=== PATIENT | male | born 1970 | race African-American/Black ===

== ENCOUNTER 2020-02-01 15:08 | Emergency (ER) | payer OTHER, SELFPAY ==
[2020-02-01 15:14] VITALS: BP 114/61; PULSE 68; RESP 18; TEMP 37.4; O2SAT 100
--- NOTE | 2020-02-01 15:19 | ECG_ITS ---
Measurements Intervals [place] Rate: 52 P: 94 HI: 167 QRS: 72 QRSD: 94 T: 78 QT: 405 QTc: 377 Interpretive Statements SINUS BRADYCARDIA NONSPECIFIC ST ELEVATION IN ANT/INF LEADS- PROBABLY EARLY REPOLARIZATION BORDERLINE ECG Electronically Signed On 02-01-2020 15:37:09 CDT by Odell Clarke D.O.
[2020-02-01 15:49] LABS: Basophils Percent Auto 0.5 % (0.2-1.2); Eosinophils Percent Auto 0.5 % (0-4.4); Hematocrit 40.4 % (42.0-52.0); Hemoglobin 13.2 g/dL (14.0-18.0); Immature Granulocyte Absolute 0.04 K/mm3 (0.00-0.031); Lymphocytes Absolute Auto 1.42 K/mm3 (0.9-3.2); Lymphocytes Percent Auto 34.1 % (18.3-44.2); Mean Corpuscular HGB Conc 32.7 g/dl (32-36); Mean Corpuscular Hemoglobin 29.8 pg (26-34); Mean Corpuscular Volume 91.2 fl (80-100); Mean Platelet Volume 10.5 fl (7.4-10.4); Monocytes Absolute Auto 0.5 K/mm3 (0.1-0.6); Monocytes Percent Auto 11.5 % (2.6-8.5); Neutrophils Absolute Auto 2.2 K/mm3 (1.3-6.7); Neutrophils Percent Auto 52.4 % (45.5-73.1); Platelet Count Result 184 k/mm3 (150-375); Red Blood Count 4.43 M/mm3 (4.6-6.20); Red Cell Distribution Width 11.9 % (11.5-14.5); White Blood Count 4.2 K/mm3 (4.5-10.0)
[2020-02-01 16:03] LABS: Blood Urea Nitrogen 12 mg/dL (9-20); Carbon Dioxide 28 mmol/L (22-30); Chloride 105 mmol/L (98-107); Estimated CRCL calculation 77 ml/min; Estimated Glomerular Filt Rate 58; Glucose 96 mg/dL (75-110); Potassium 4.4 mmol/L (3.4-5.0); Sodium 139 mmol/L (137-145)
[2020-02-01 17:13] LABS: Basophils Percent Auto 0.5 % (0.2-1.2); Eosinophils Percent Auto 0.7 % (0-4.4); Hematocrit 39.2 % (42.0-52.0); Hemoglobin 12.7 g/dL (14.0-18.0); Immature Granulocyte Absolute 0.03 K/mm3 (0.00-0.031); Immature Granulocyte Percent A 0.7 % (0-0.5); Lymphocytes Absolute Auto 1.34 K/mm3 (0.9-3.2); Lymphocytes Percent Auto 30.2 % (18.3-44.2); Mean Corpuscular HGB Conc 32.4 g/dl (32-36); Mean Corpuscular Hemoglobin 29.5 pg (26-34); Mean Platelet Volume 10.3 fl (7.4-10.4); Monocytes Absolute Auto 0.5 K/mm3 (0.1-0.6); Monocytes Percent Auto 10.6 % (2.6-8.5); Neutrophils Absolute Auto 2.5 K/mm3 (1.3-6.7); Neutrophils Percent Auto 57.3 % (45.5-73.1); Platelet Count Result 182 k/mm3 (150-375); Red Blood Count 4.31 M/mm3 (4.6-6.20); Red Cell Distribution Width 11.9 % (11.5-14.5); White Blood Count 4.4 K/mm3 (4.5-10.0)
--- NOTE | 2020-02-01 17:14 | PC.NURSE ---
Pt refuses IV and IV fluids. Informed Dr. Jacobo of this
[2020-02-01 17:21] LABS: INR 0.9; Prothrombin Time 12.2 Seconds (11.1-14.7)
[2020-02-01 17:22] LABS: Partial Thromboplastin Time 27.2 SECONDS (22.3-36.8)
[2020-02-01 17:25] LABS: Alanine Aminotransferase 23 U/L (4-50); Albumin Level 4.3 g/dL (3.5-5.1); Alkaline Phosphatase 48 U/L (38-126); Aspartate Amino Transferase 29 U/L (17-59); Bilirubin,Total 0.4 mg/dL (0.2-1.3); Blood Urea Nitrogen 12 mg/dL (9-20); Carbon Dioxide 29 mmol/L (22-30); Chloride 104 mmol/L (98-107); Estimated CRCL calculation 83 ml/min; Estimated Glomerular Filt Rate > 60; Glucose 97 mg/dL (75-110); Potassium 4.1 mmol/L (3.4-5.0); Sodium 141 mmol/L (137-145)
[2020-02-01 17:26] VITALS: BP 118/67; PULSE 47
[2020-02-01 17:28] VITALS: BP 118/72; PULSE 48
[2020-02-01 17:30] VITALS: BP 116/75; PULSE 65
[2020-02-01 17:34] LABS: Add Urine Microscopic? YES; Appearance Urine Clear (Clear); Bacteria Urine Trace /hpf; Bilirubin Urine Negative (Negative); Blood Urine Negative (Negative); Color Urine Yellow (Yellow); Glucose Urine UA Negative (Negative); Ketones Urine Negative (Negative); Leukocyte Esterase Ur Negative LEU/UL (Negative); Mucus Urine Few /lpf; Nitrate Urine Negative (Negative); Protein Urine Negative (Negative); Specific Grav Ur 1.026 (1.001-1.035); Urobilinogen Urine Negative mg/dL (<2.0); WBC Urine 0-3 /hpf
[2020-02-01 17:37] LABS: Troponin I < 0.012 ng/mL (0.000-0.034)
--- NOTE | 2020-02-01 17:43 | ED.GENADULT ---
HPI - General Adult General Chief complaint: Recheck/Abnormal Lab/Rx Stated complaint: sent by pcp, hx of suncopal episode Time Seen by Provider: 02/01/20 16:56 Source: patient and family Mode of arrival: ambulatory Limitations: no limitations History of Present Illness HPI narrative: 49-year-old with no major medical problems here with complaints of syncopal episode. Patient states that he was in silent protest which was going on yesterday. Patient states that he was standing in line with his facial mask on all of a sudden he felt short of breath and lightheaded and had a near syncopal episode however patient states that he did not pass out completely. This morning he did go see Dr. Croft for the first time and patient was later referred here to the ER for evaluation. Patient states that his blood pressure is always low also raises heart rate. He presently denies any chest pain, shortness of breath, headache or abdominal pain. Onset (ago): day(s) (1) Associated symptoms: denies other symptoms Review of Systems Review of Systems: All systems reviewed & are unremarkable except as noted in HPI and below Constitutional: Constitutional: Reports as per HPI Eyes: Eyes: Reports as per HPI ENT: Reports system reviewed and no additional complaints, except as documented Cardiovascular: Cardiovascular: Reports as per HPI Respiratory: Respiratory: Reports no additional respiratory complaints Gastrointestinal: Gastrointestinal: Reports no additional gastrointestinal complaints Musculoskeletal: Musculoskeletal: Reports no additional musculoskeletal complaints Neurologic: Reports system reviewed and no additional complaints, except as documented Psychiatric: Psychiatric: Reports no additional psychiatric complaints PMFSH Social History Social History Gender identity (if verbalized by the patient): Male Exam Const: General: no acute distress HENMT: Head: normal to inspection Eyes: Conjunctivae: conjunctivae normal Pupils: Equal, round and reactive pupils present Neck: Neck: normal visual inspection Chest: Chest palpation & inspection: normal inspection of the chest Resp: Effort & Inspection: normal respiratory effort Cardio: Rate: regular rate Rhythm: regular rhythm Skin: General skin exam: normal color Neuro: General: patient oriented x3 and moves all extremities Extrem: General: normal to inspection Psych: Mental Status: mental status grossly normal Course Course Emergency Course: Inform patient that when family about his lab work, EKG. Patient presently denies any complaints he states that he is back to his baseline. I advised him to follow-up with his primary doctor as needed. Vital Signs Vital signs: Vital Signs Temperature 37.4 C 02/01/20 15:14 Pulse Rate 68 02/01/20 15:14 Respiratory Rate 18 02/01/20 15:14 Blood Pressure 114/61 02/01/20 15:14 Pulse Oximetry 100 02/01/20 15:14 Temperature 37.4 C 02/01/20 15:14 Pulse Rate 65 02/01/20 17:30 Respiratory Rate 18 02/01/20 15:14 Blood Pressure 116/75 02/01/20 17:30 Pulse Oximetry 100 02/01/20 15:14 Medical Decision Making Vital Signs Vital Signs: Vital Signs Temperature 37.4 C 02/01/20 15:14 Pulse Rate 68 02/01/20 15:14 Respiratory Rate 18 02/01/20 15:14 Blood Pressure 114/61 02/01/20 15:14 Pulse Oximetry 100 02/01/20 15:14 Temperature 37.4 C 02/01/20 15:14 Pulse Rate 65 02/01/20 17:30 Respiratory Rate 18 02/01/20 15:14 Blood Pressure 116/75 02/01/20 17:30 Pulse Oximetry 100 02/01/20 15:14 Lab Data Result diagrams: 02/01/20 17:08 02/01/20 17:08 Labs: Lab Results 02/01/20 02/01/20 02/01/20 Range/Units 15:33 15:33 17:08 WBC 4.2 L 4.4 L (4.5-10.0) K/mm3 RBC 4.43 L 4.31 L (4.6-6.20) M/mm3 Hgb 13.2 L 12.7 L (14.0-18.0) g/dL Hct 40.4 L 39.2 L (42.0-52.0) % MCV 91.2 91.0 (80-100) fl MCH 29.8 29.5 (26-3
[2020-02-01 18:14] VITALS: BP 114/66; PULSE 54; RESP 18; O2SAT 100
== END 2020-02-01 18:14 | disposition home or self-care (01) ==
PROVIDERS: Emergency Medicine; Emergency Medicine Emergency Medical Services; Emergency Provider Family Medicine
DX: R55 Syncope and collapse (principal); R00.1 Bradycardia, unspecified; R94.31 Abnormal electrocardiogram [ECG] [EKG]
CPT/HCPCS: 36415; 80048; 80053; 81001; 84484; 85025; 85610; 85730; 93005; 99284